=== PATIENT | female | born 1955 | race Two or more races ===

== ENCOUNTER 2023-02-15 09:50 | Outpatient (CLI) | payer OTHER | END 2023-02-15 10:01 | disposition home or self-care (01) | LOC: EDBD 09:50 → MAMO-SONO 09:50 | DX: N60.11 Diffuse cystic mastopathy of right breast (principal); N60.12 Diffuse cystic mastopathy of left breast; N64.4 Mastodynia; R22.0 Localized swelling, mass and lump, head; Z12.31 Encounter for screening mammogram for malignant neoplasm of breast ==

== ENCOUNTER 2025-01-20 08:45 | Inpatient (IN) | payer OTHER ==
[~2025-01-20] VITALS: Ht 167.6 cm; Wt 77.1 kg
[2025-01-20] MEDS ORDERED: SILENOR6 MG PO (11:20)
[2025-01-20] MEDS ORDERED: SINGULAIR10 MG PO (11:20)
[2025-01-20] MEDS ORDERED: COZAAR100 MG PO (11:20)
[2025-01-20] MEDS ORDERED: ROSUVASTATIN CAL5 MG PO (11:20)
[2025-01-20 11:21] VITALS: BP 160/94
[2025-01-20] MEDS ORDERED: PROMETRIUM200 MG PO (11:21)
[2025-01-20 13:30] VITALS: BP 146/76
[2025-01-27] MEDS ORDERED: CEFAZOLIN SODIUM 1,000 MG VIAL IV ONE (18:30)
[2025-01-27] MEDS ORDERED: POVIDONE-IODINE 118 ML BOTT TOP ONE (18:30)
[2025-01-27] MEDS ORDERED: SUGAMMADEX SODIUM 200 MG/2 ML VIAL IV ONE (21:00)
[2025-01-27] MEDS ORDERED: MORPHINE SULFATE 4 MG/ML CARTRIDGE IV PRN (22:15)
[2025-01-27] MEDS ORDERED: KETOROLAC TROMETHAMINE 60 MG VIAL IM ONE (22:30)
[2025-01-28 02:33] VITALS: BP 146/76
[2025-01-28] MEDS ORDERED: DOCUSATE SODIUM 100MG CAP PO SCH (09:00)
[2025-01-28] MEDS ORDERED: SIMETHICONE 125 MG CAPSULE PO SCH (09:00)
[2025-01-28 09:04] VITALS: BP 150/75
[2025-01-28 12:33] VITALS: BP 140/72
== END 2025-01-28 14:03 | disposition home or self-care (01) | DRG 337 ==
LOC: SURH 01-27 08:45 → OB/GYN 01-27 22:18
PROVIDERS: Student in an Organized Health Care Education/Training Program; ADMIT Specialist; ATTEND Specialist
PROC: 0UN24ZZ Release Bilateral Ovaries, Percutaneous Endoscopic Approach (ICD-10-PCS; 2025-01-27)
PROC: 0DNW4ZZ Release Peritoneum, Percutaneous Endoscopic Approach (ICD-10-PCS; 2025-01-27)
PROC: 0DNN4ZZ Release Sigmoid Colon, Percutaneous Endoscopic Approach (ICD-10-PCS; principal; 2025-01-27 09:30)
PROC: 0DNP4ZZ Release Rectum, Percutaneous Endoscopic Approach (ICD-10-PCS; 2025-01-27 09:30)
DX: K66.0 Peritoneal adhesions (postprocedural) (postinfection) (principal); N95.0 Postmenopausal bleeding

== ENCOUNTER 2025-03-19 08:00 | Day surgery (SDC) | payer OTHER ==
[~2025-03-19 08:00] MED LIST: COZAAR100 MG PO; PROMETRIUM200 MG PO; ROSUVASTATIN CAL5 MG PO; SILENOR6 MG PO; SINGULAIR10 MG PO
[2025-03-19] MEDS ORDERED: GLUCAGON 1 MG VIAL IV STA (11:25)
[2025-03-19] MEDS ORDERED: ONDANSETRON HCL 2 MG/ML VIAL IV ONE (11:30)
[2025-03-19] MEDS ORDERED: DIPHENHYDRAMINE HCL 50 MG/ML VIAL 1ML IV ONE (11:30)
[2025-03-19] MEDS ORDERED: MIDAZOLAM HCL 2 MG/2 ML VIAL IV ONE (11:30)
[2025-03-19] MEDS ORDERED: fentaNYL CITRATE 50 MCG/ML AMPUL IV PUSH ONE (11:30)
== END 2025-03-19 12:25 | disposition home or self-care (01) ==
LOC: AMB-ENDOS 08:00
PROVIDERS: ATTEND Colon & Rectal Surgery
DX: K62.1 Rectal polyp (principal)